=== PATIENT | male | born 1970 | race Caucasian/White ===

== ENCOUNTER 2023-11-13 17:41 | Emergency (ER) | payer OTHER, SELFPAY ==
[2023-11-13 17:48] VITALS: BP 113/81; PULSE 79; RESP 16; TEMP 36.4; O2SAT 100
--- NOTE | 2023-11-13 18:13 | ED.GENADULT ---
HPI - General Adult General Chief complaint: Upper Respiratory Infection Stated complaint: Covid Time Seen by Provider: 11/13/23 18:00 Source: patient and RN notes reviewed Mode of arrival: ambulatory Limitations: no limitations History of Present Illness HPI narrative: Patient presents today stating he has had 2 positive COVID-19 test today. Reports fatigue and body aches with rhinorrhea and congestion. Symptoms began today. Denies cough or shortness of breath. He has taken a decongestant today with some relief. Patient has history of AFib, HPV cancer 2 years ago. He is asking if he is eligible for antiviral treatment. Related Data Home Medications Medication Instructions Recorded Confirmed apixaban 5 mg tablet (Eliquis) 5 mg PO BID 11/13/23 11/13/23 diltiazem HCl 30 mg tablet 30 mg PO TID 11/13/23 11/13/23 tadalafil 5 mg tablet 5 mg PO DIRECTED 11/13/23 11/13/23 thyroid (pork) 120 mg tablet 120 mg PO DIRECTED 11/13/23 11/13/23 ([place] Thyroid) Allergies Allergy/AdvReac Type Severity Reaction Status Date / Time Penicillins Allergy Unknown Other Verified 11/13/23 18:04 Review of Systems Review of Systems: CONSTITUTIONAL: Denies fever, chills, or sweats.+ fatigue, body aches EYES: Denies visual changes, redness, or discharge. ENT: Denies sore throat, or otalgia.+ congestion, rhinorrhea CARDIOVASCULAR: Denies chest pain, palpitations, or edema. RESPIRATORY: Denies cough or dyspnea. GASTROINTESTINAL: Denies abdominal pain, nausea, vomiting, or diarrhea. GENITOURINARY: Denies dysuria or hematuria. SKIN: Denies rash, itching, or wounds. MUSCULOSKELETAL: Denies back pain, joint pain, or myalgia. NEUROLOGIC: Denies headache, numbness, tingling, or weakness. PSYCH: Denies depression or anxiety. [facility] Past Medical History Medical History (Updated 11/13/23 @ 18:19 by Alba Springer, [employer], ) Afib Comments At time of signature, I have reviewed and agree with nursing past medical, surgical, social and family history unless otherwise noted. Please see nursing chart for further information. There is no relevant family history pertinent to the presenting complaint Exam Narrative: GENERAL: Well-appearing, well-nourished, and in no acute distress. HEAD: Normocephalic, atraumatic. EYES: EOMI. No redness or drainage. Conjunctivae normal. ENT: Mucous membranes pink and moist. Nares congested. No rhinorrhea. TMs normal bilaterally. Throat normal. Uvula midline. NECK: Normal AROM. Supple. No lymphadenopathy. CHEST: No respiratory distress. Clear to auscultation. HEART: Regular rate and rhythm. No murmur appreciated. EXTREMITIES: Normal range of motion. No edema. SKIN: Warm, dry, no rash. Capillary refill normal. Normal skin turgor. NEURO: No focal deficits. Alert and oriented x3. Gait steady. PSYCH: Normal affect. No signs of depression or anxiety. Course Course Level of Care: Express Care Visit Vital Signs Vital signs: Vital Signs Temperature 97.5 F L 11/13/23 17:48 Pulse Rate 79 11/13/23 17:48 Respiratory Rate 16 11/13/23 17:48 Blood Pressure 113/81 11/13/23 17:48 Pulse Oximetry 100 11/13/23 17:48 Temperature 97.5 F L 11/13/23 17:48 Pulse Rate 79 11/13/23 17:48 Respiratory Rate 16 11/13/23 17:48 Blood Pressure 113/81 11/13/23 17:48 Pulse Oximetry 100 11/13/23 17:48 Reviewed Medical Decision Making MDM Narrative Medical decision making narrative: Patient's exam is grossly normal except his nasal congestion. He isn't eligible to take Paxlovid due to Eliquis interaction. He is also only exhibiting very mild symptoms so I do not believe he would need it. Discussed [id number] treatment for symptoms and when to go to the ER. Anticipatory guidance given. Differential Diagnosis Differential Diagnosis: COVID-19, pneumonia Vital Signs Vital Signs: Vital Signs Temperature 97.5 F L 11/13/23 17:48 Pulse Rate 79 11/13/23 17:4
== END 2023-11-13 18:21 | disposition home or self-care (01) ==
PROVIDERS: Emergency Provider Nurse Practitioner; PCP Family Medicine
DX: U07.1 COVID-19 (principal); I48.91 Unspecified atrial fibrillation; Z85.9 Personal history of malignant neoplasm, unspecified; Z79.01 Long term (current) use of anticoagulants
CPT/HCPCS: 99211; G0463